=== PATIENT | female | born 1960 | race African-American/Black ===

== ENCOUNTER 2018-03-14 19:16 | Inpatient (IN) | payer OTHER, MEDICAID ==
[~2018-03-14] VITALS: Ht 165.1 cm; Wt 86.6 kg
[2018-03-14 20:01] LABS: BASOPHILS # (AUTO) 0.1 K/uL (0.0-8.0); BASOPHILS % (AUTO) 2.6 % (0.0-2.0); EOSINOPHILS # (AUTO) 0.1 K/uL (0.0-0.7); EOSINOPHILS % (AUTO) 2.5 % (0.0-7.0); HEMATOCRIT 38.3 % (31.2-41.9); HEMOGLOBIN 12.5 g/dL (10.9-14.3); LYMPHOCYTES # (AUTO) 1.8 K/uL (20.0-40.0); LYMPHOCYTES % (AUTO) 33.3 % (20.5-51.5); MEAN CORPUSCULAR HEMOGLOBIN 27.1 uug (24.7-32.8); MEAN CORPUSCULAR HGB CONC 33 g/dL (32.3-35.6); MONOCYTES # (AUTO) 0.4 K/uL (2.0-10.0); MONOCYTES % (AUTO) 7.9 % (0.0-11.0); NEUTROPHILS # (AUTO) 2.9 K/uL (1.8-8.9); NEUTROPHILS % (AUTO) 53.7 % (38.5-71.5); PLATELET COUNT (AUTO) 127 K/uL (179-408); RED BLOOD CELL COUNT(AUTO) 4.61 MIL/uL (3.63-4.92); WHITE BLOOD COUNT (AUTO) 5.4 K/uL (3.8-11.8)
[2018-03-14 20:11] LABS: CARBON DIOXIDE 30 mmol/L (21-32); CHLORIDE 106 mmol/L (98-107); CREATININE 1.1 mg/dL (0.6-1.3); GLUCOSE 114 mg/dL (74-106); POTASSIUM 4.3 mmol/L (3.5-5.1); UREA NITROGEN, BLOOD 30 mg/dL (7-18)
[2018-03-14 20:16] LABS: ACETAMINOPHEN < 2.0 ug/mL (10-30); ALANINE AMINOTRANSFERASE 23 U/L (14-59); ALKALINE PHOSPHATASE 106 U/L (50-136); ASPARTATE AMINOTRANSFERASE 14 U/L (15-37); BILIRUBIN,DIRECT 0.1 mg/dL (0.0-0.2); BILIRUBIN,TOTAL 0.3 mg/dL (0.2-1.0)
[2018-03-14 20:20] LABS: ETHANOL < 3 MG/DL (0-0)
[2018-03-14 20:20] LABS: *BILIRUBIN,URIN NEGATIVE (NEGATIVE); *BLOOD, URINE NEGATIVE (NEGATIVE); *COLOR,URINE YELLOW (YELLOW); *KETONES,URINE TRACE (NEGATIVE); *PROTEIN,URINE NEGATIVE (NEGATIVE); *UROBILINOGEN,URINE 0.2 E.U./dl (NORMAL); LEUKOCYTE ESTERASE ,URINE TRACE (NEGATIVE); NITRITE, URINE NEGATIVE (NEGATIVE); UGLUCOSE NEGATIVE (NEGATIVE)
[2018-03-14 20:30] LABS: *CLARITY,URINE SLIGHTLY HAZY (CLEAR)
[2018-03-14 20:31] LABS: BACTERIA,URINE MODERATE /HPF (NONE SEEN); RBC,URINE 0-3 /HPF (0-3); SQUAMOUS EPITHELIAL CELL,UR MODERATE /HPF (NONE SEEN)
[2018-03-14 20:32] LABS: MUCUS,URINE MODERATE /LPF (0-FEW)
[2018-03-14] MEDS ORDERED: LEVOFLOXACIN 500 MG TABLET PO ONE (20:45)
[2018-03-14] MEDS ORDERED: LEVOFLOXACIN 500 MG TABLET ONE (20:47)
[2018-03-14] MEDS ORDERED: QUET200T PO (21:10)
[2018-03-14] MEDS ORDERED: CARV6.252 PO (21:10)
[2018-03-14] MEDS ORDERED: ATEN100T PO (21:10)
[2018-03-14] MEDS ORDERED: LISI-603 PO (21:10)
[2018-03-14] MEDS ORDERED: IBUP-1957 PO (21:10)
[2018-03-14] MEDS ORDERED: MAGNESIUM HYDROXIDE 30 ML LIQUID UDC PO PRN (21:30)
[2018-03-14 21:36] LABS: *AMPHETAMINE, URINE NEGATIVE (NEGATIVE); *BARBITURATE, URINE NEGATIVE (NEGATIVE); *CANNABINOID, URINE NEGATIVE (NEGATIVE); *COCCAINE, URINE POSITIVE (NEGATIVE); *OPIATE, URINE NEGATIVE (NEGATIVE); *PHENCYCLIDINE SCREEN,URINE NEGATIVE (NEGATIVE)
[2018-03-14] MEDS: LORAZEPAM 1 MG TABLET PO PRN (22:45)
[2018-03-15] MEDS: TEMAZEPAM 7.5 MG CAPSULE PO PRN (01:04)
[2018-03-15 02:01] VITALS: BP 150/76
[2018-03-15 07:30] VITALS: BP 135/97
[2018-03-15] MEDS: LORAZEPAM 1 MG TABLET PO PRN ×3 (08:31→23:04)
[2018-03-15] MEDS: NICOTINE 7 MG/24HR PATCH TD SCH (11:30)
[2018-03-15] MEDS: BENZTROPINE MESYLATE 0.5 MG TABLET PO SCH ×2 (14:06→17:41)
[2018-03-15] MEDS: risperiDONE-M 0.5 MG TAB.RAPDIS PO SCH ×2 (14:06→17:41)
[2018-03-15] MEDS: ACETAMINOPHEN 325 MG TABLET PO PRN (15:33)
[2018-03-15 17:13] VITALS: BP 160/89
[2018-03-15] MEDS ORDERED: IBUPROFEN 800 MG TABLET PO PRN (19:45)
[2018-03-15 20:00] VITALS: BP 150/85
[2018-03-15] MEDS: DIVALPROEX SPRINKLE 125 MG CAP.SPRINK PO SCH (20:41)
[2018-03-15] MEDS: CEPHALEXIN MONOHYDRATE 250 MG CAPSULE PO SCH ×2 (21:07→23:03)
[2018-03-16] MEDS: CEPHALEXIN MONOHYDRATE 250 MG CAPSULE PO SCH ×3 (06:27→21:23)
[2018-03-16] MEDS: LORAZEPAM 1 MG TABLET PO PRN ×3 (07:41→16:17)
[2018-03-16] MEDS: ACETAMINOPHEN 325 MG TABLET PO PRN ×2 (07:41→16:17)
[2018-03-16 08:41] VITALS: BP 195/84
[2018-03-16] MEDS: BENZTROPINE MESYLATE 0.5 MG TABLET PO SCH ×3 (08:55→16:17)
[2018-03-16] MEDS: DIVALPROEX SPRINKLE 125 MG CAP.SPRINK PO SCH ×2 (08:55→20:03)
[2018-03-16] MEDS: NICOTINE 7 MG/24HR PATCH TD SCH (08:55)
[2018-03-16] MEDS: risperiDONE-M 0.5 MG TAB.RAPDIS PO SCH ×3 (08:55→16:17)
[2018-03-16] MEDS: CARVEDILOL 6.25 MG TABLET PO SCH ×2 (08:56→16:22)
[2018-03-16] MEDS: LISINOPRIL 20 MG TABLET PO SCH (08:56)
[2018-03-16] MEDS: IBUPROFEN 800 MG TABLET PO PRN (12:31)
[2018-03-16 16:30] VITALS: BP 141/77
[2018-03-16 19:54] VITALS: BP 124/51
[2018-03-16] MEDS: TEMAZEPAM 7.5 MG CAPSULE PO PRN (21:23)
[2018-03-17] MEDS: CEPHALEXIN MONOHYDRATE 250 MG CAPSULE PO SCH ×3 (06:06→22:32)
[2018-03-17] MEDS: LORAZEPAM 1 MG TABLET PO PRN ×3 (06:52→15:53)
[2018-03-17 08:03] VITALS: BP 176/99
[2018-03-17] MEDS: NICOTINE 7 MG/24HR PATCH TD SCH (08:06)
[2018-03-17] MEDS: CARVEDILOL 6.25 MG TABLET PO SCH ×2 (08:07→16:10)
[2018-03-17] MEDS: risperiDONE-M 0.5 MG TAB.RAPDIS PO SCH ×3 (08:07→16:08)
[2018-03-17] MEDS: DIVALPROEX SPRINKLE 125 MG CAP.SPRINK PO SCH ×2 (08:07→19:03)
[2018-03-17] MEDS: ACETAMINOPHEN 325 MG TABLET PO PRN (08:07)
[2018-03-17] MEDS: BENZTROPINE MESYLATE 0.5 MG TABLET PO SCH ×3 (08:07→16:08)
[2018-03-17] MEDS: LISINOPRIL 20 MG TABLET PO SCH (08:08)
[2018-03-17 09:45] VITALS: BP 176/99
[2018-03-17] MEDS: IBUPROFEN 800 MG TABLET PO PRN ×2 (09:54→15:53)
[2018-03-17 15:03] VITALS: BP 161/65
[2018-03-17 20:27] VITALS: BP 114/78
[2018-03-17] MEDS: TEMAZEPAM 7.5 MG CAPSULE PO PRN (22:33)
[2018-03-18] MEDS: CEPHALEXIN MONOHYDRATE 250 MG CAPSULE PO SCH ×3 (05:18→21:28)
[2018-03-18 07:50] VITALS: BP 137/76
[2018-03-18] MEDS: LORAZEPAM 1 MG TABLET PO PRN ×3 (08:13→17:07)
[2018-03-18] MEDS: BENZTROPINE MESYLATE 0.5 MG TABLET PO SCH ×3 (08:13→16:20)
[2018-03-18] MEDS: LISINOPRIL 20 MG TABLET PO SCH (08:14)
[2018-03-18] MEDS: DIVALPROEX SPRINKLE 125 MG CAP.SPRINK PO SCH ×2 (08:14→20:32)
[2018-03-18] MEDS: risperiDONE-M 0.5 MG TAB.RAPDIS PO SCH ×4 (08:17→16:52)
[2018-03-18] MEDS: NICOTINE 7 MG/24HR PATCH TD SCH (08:17)
[2018-03-18] MEDS: CARVEDILOL 6.25 MG TABLET PO SCH ×2 (08:18→16:20)
[2018-03-18 16:46] VITALS: BP 142/86
[2018-03-18] MEDS: IBUPROFEN 800 MG TABLET PO PRN (16:58)
[2018-03-18 20:00] VITALS: BP 153/83
[2018-03-18] MEDS: TEMAZEPAM 7.5 MG CAPSULE PO PRN (20:33)
[2018-03-19] MEDS: CEPHALEXIN MONOHYDRATE 250 MG CAPSULE PO SCH ×3 (06:37→21:35)
[2018-03-19 07:30] VITALS: BP 134/87
[2018-03-19] MEDS: BENZTROPINE MESYLATE 0.5 MG TABLET PO SCH ×3 (08:34→16:25)
[2018-03-19] MEDS: DIVALPROEX SPRINKLE 125 MG CAP.SPRINK PO SCH ×2 (08:36→20:20)
[2018-03-19] MEDS: CARVEDILOL 6.25 MG TABLET PO SCH ×2 (08:36→16:27)
[2018-03-19] MEDS: LISINOPRIL 20 MG TABLET PO SCH (08:37)
[2018-03-19] MEDS: NICOTINE 7 MG/24HR PATCH TD SCH (08:37)
[2018-03-19] MEDS: risperiDONE-M 0.5 MG TAB.RAPDIS PO SCH ×3 (08:37→16:28)
[2018-03-19] MEDS: LORAZEPAM 1 MG TABLET PO PRN (13:43)
[2018-03-19 15:57] VITALS: BP 128/67
[2018-03-19] MEDS: ACETAMINOPHEN 325 MG TABLET PO PRN (16:25)
[2018-03-19] MEDS: DIVALPROEX 250 MG TABLET.DR PO SCH (16:26)
[2018-03-19 19:48] VITALS: BP 132/71
[2018-03-19] MEDS: TEMAZEPAM 7.5 MG CAPSULE PO PRN (21:31)
[2018-03-20] MEDS: CEPHALEXIN MONOHYDRATE 250 MG CAPSULE PO SCH ×2 (05:58→13:12)
[2018-03-20 07:30] VITALS: BP 133/80
[2018-03-20] MEDS: DIVALPROEX SPRINKLE 125 MG CAP.SPRINK PO SCH ×2 (08:52→20:00)
[2018-03-20] MEDS: BENZTROPINE MESYLATE 0.5 MG TABLET PO SCH ×3 (08:52→17:12)
[2018-03-20] MEDS: CARVEDILOL 6.25 MG TABLET PO SCH ×2 (08:52→17:14)
[2018-03-20] MEDS: NICOTINE 7 MG/24HR PATCH TD SCH (08:53)
[2018-03-20] MEDS: LISINOPRIL 20 MG TABLET PO SCH (08:53)
[2018-03-20] MEDS: risperiDONE-M 0.5 MG TAB.RAPDIS PO SCH ×3 (08:53→17:14)
[2018-03-20] MEDS: LORAZEPAM 1 MG TABLET PO PRN ×4 (08:54→23:04)
[2018-03-20] MEDS: ACETAMINOPHEN 325 MG TABLET PO PRN (15:24)
[2018-03-20 16:32] VITALS: BP 147/82
[2018-03-20] MEDS: DIVALPROEX 250 MG TABLET.DR PO SCH (17:14)
[2018-03-20] MEDS: TEMAZEPAM 7.5 MG CAPSULE PO PRN (20:01)
[2018-03-20 20:11] VITALS: BP 116/46
[2018-03-21 07:30] VITALS: BP 121/94
[2018-03-21] MEDS: BENZTROPINE MESYLATE 0.5 MG TABLET PO SCH ×3 (09:15→16:11)
[2018-03-21] MEDS: DIVALPROEX SPRINKLE 125 MG CAP.SPRINK PO SCH ×2 (09:17→20:17)
[2018-03-21] MEDS: CARVEDILOL 6.25 MG TABLET PO SCH ×2 (09:18→16:14)
[2018-03-21] MEDS: LISINOPRIL 20 MG TABLET PO SCH (09:19)
[2018-03-21] MEDS: NICOTINE 7 MG/24HR PATCH TD SCH (09:20)
[2018-03-21] MEDS: risperiDONE-M 0.5 MG TAB.RAPDIS PO SCH ×3 (10:40→16:12)
[2018-03-21 16:00] VITALS: BP 118/84
[2018-03-21] MEDS: DIVALPROEX 250 MG TABLET.DR PO SCH (16:11)
[2018-03-21 21:34] VITALS: BP 125/88
[2018-03-21] MEDS: TEMAZEPAM 7.5 MG CAPSULE PO PRN (23:49)
[2018-03-22] MEDS: MAG HYDROX/AL HYDROX/SIMETH 30 ML LIQUID UDC PO PRN (02:11)
[2018-03-22] MEDS: ACETAMINOPHEN 325 MG TABLET PO PRN (02:11)
[2018-03-22] MEDS: LORAZEPAM 1 MG TABLET PO PRN (02:12)
[2018-03-22 07:30] VITALS: BP 120/79
[2018-03-22] MEDS: risperiDONE-M 0.5 MG TAB.RAPDIS PO SCH ×3 (08:41→17:24)
[2018-03-22] MEDS: DIVALPROEX SPRINKLE 125 MG CAP.SPRINK PO SCH ×2 (08:42→20:15)
[2018-03-22] MEDS: BENZTROPINE MESYLATE 0.5 MG TABLET PO SCH ×3 (08:42→17:25)
[2018-03-22] MEDS: LISINOPRIL 20 MG TABLET PO SCH (08:42)
[2018-03-22] MEDS: NICOTINE 7 MG/24HR PATCH TD SCH (08:43)
[2018-03-22] MEDS: CARVEDILOL 6.25 MG TABLET PO SCH ×2 (08:43→17:25)
[2018-03-22 16:00] VITALS: BP 125/80
[2018-03-22] MEDS: DIVALPROEX 250 MG TABLET.DR PO SCH (17:29)
[2018-03-22] MEDS ORDERED: GUAIFENESIN/DEXTROMETHORPHAN 5 ML UDC PO PRN ×2 (18:15→18:30)
[2018-03-22 21:34] VITALS: BP 149/82
[2018-03-23 07:30] VITALS: BP 124/61
[2018-03-23] MEDS: BENZTROPINE MESYLATE 0.5 MG TABLET PO SCH ×3 (08:14→16:52)
[2018-03-23] MEDS: DIVALPROEX SPRINKLE 125 MG CAP.SPRINK PO SCH ×2 (08:14→20:13)
[2018-03-23] MEDS: risperiDONE-M 0.5 MG TAB.RAPDIS PO SCH ×3 (08:14→16:52)
[2018-03-23] MEDS: LISINOPRIL 20 MG TABLET PO SCH (08:14)
[2018-03-23] MEDS: CARVEDILOL 6.25 MG TABLET PO SCH ×2 (08:15→16:53)
[2018-03-23] MEDS: NICOTINE 7 MG/24HR PATCH TD SCH (08:16)
[2018-03-23 16:00] VITALS: BP 101/68
[2018-03-23] MEDS: DIVALPROEX 250 MG TABLET.DR PO SCH (16:52)
[2018-03-23 20:00] VITALS: BP 126/60
[2018-03-23] MEDS: TEMAZEPAM 7.5 MG CAPSULE PO PRN (22:13)
[2018-03-24] MEDS: MAG HYDROX/AL HYDROX/SIMETH 30 ML LIQUID UDC PO PRN ×3 (00:10→20:32)
[2018-03-24 07:30] VITALS: BP 126/60
[2018-03-24] MEDS: NICOTINE 7 MG/24HR PATCH TD SCH (08:31)
[2018-03-24] MEDS: CARVEDILOL 6.25 MG TABLET PO SCH ×2 (08:32→17:41)
[2018-03-24] MEDS: DIVALPROEX SPRINKLE 125 MG CAP.SPRINK PO SCH ×2 (08:32→20:32)
[2018-03-24] MEDS: BENZTROPINE MESYLATE 0.5 MG TABLET PO SCH ×3 (08:32→17:40)
[2018-03-24] MEDS: LISINOPRIL 20 MG TABLET PO SCH (08:33)
[2018-03-24] MEDS: risperiDONE-M 0.5 MG TAB.RAPDIS PO SCH ×3 (08:35→17:39)
[2018-03-24 16:00] VITALS: BP 128/69
[2018-03-24] MEDS: DIVALPROEX 250 MG TABLET.DR PO SCH (17:39)
[2018-03-24] MEDS: LORAZEPAM 1 MG TABLET PO PRN (20:32)
[2018-03-24 20:40] VITALS: BP 142/79
[2018-03-24] MEDS: TEMAZEPAM 7.5 MG CAPSULE PO PRN (22:05)
[2018-03-25 07:30] VITALS: BP 127/60
[2018-03-25] MEDS: risperiDONE-M 0.5 MG TAB.RAPDIS PO SCH ×3 (08:52→16:52)
[2018-03-25] MEDS: NICOTINE 7 MG/24HR PATCH TD SCH (08:52)
[2018-03-25] MEDS: DIVALPROEX SPRINKLE 125 MG CAP.SPRINK PO SCH ×2 (08:52→20:20)
[2018-03-25] MEDS: IBUPROFEN 800 MG TABLET PO PRN (08:52)
[2018-03-25] MEDS: BENZTROPINE MESYLATE 0.5 MG TABLET PO SCH ×3 (08:52→16:52)
[2018-03-25] MEDS: LISINOPRIL 20 MG TABLET PO SCH (08:53)
[2018-03-25] MEDS: CARVEDILOL 6.25 MG TABLET PO SCH ×2 (08:53→16:53)
[2018-03-25] MEDS: ACETAMINOPHEN 325 MG TABLET PO PRN (12:24)
[2018-03-25] MEDS: MAG HYDROX/AL HYDROX/SIMETH 30 ML LIQUID UDC PO PRN (15:39)
[2018-03-25 15:50] VITALS: BP 118/79
[2018-03-25] MEDS: DIVALPROEX 250 MG TABLET.DR PO SCH (16:52)
[2018-03-25 20:26] VITALS: BP 130/76
[2018-03-25] MEDS: TEMAZEPAM 7.5 MG CAPSULE PO PRN (21:55)
[2018-03-26] MEDS: MAG HYDROX/AL HYDROX/SIMETH 30 ML LIQUID UDC PO PRN (00:05)
[2018-03-26 07:30] VITALS: BP 119/62
[2018-03-26] MEDS: IBUPROFEN 800 MG TABLET PO PRN (08:47)
[2018-03-26] MEDS: BENZTROPINE MESYLATE 0.5 MG TABLET PO SCH ×2 (08:47→12:02)
[2018-03-26] MEDS: NICOTINE 7 MG/24HR PATCH TD SCH (08:47)
[2018-03-26] MEDS: CARVEDILOL 6.25 MG TABLET PO SCH (08:47)
[2018-03-26] MEDS: DIVALPROEX SPRINKLE 125 MG CAP.SPRINK PO SCH (08:47)
[2018-03-26] MEDS: risperiDONE-M 0.5 MG TAB.RAPDIS PO SCH ×2 (08:47→12:02)
[2018-03-26 08:48] VITALS: BP 119/62
[2018-03-26] MEDS: LISINOPRIL 20 MG TABLET PO SCH (08:48)
== END 2018-03-26 13:00 | disposition home or self-care (01) | DRG 885 ==
LOC: EDSEX 19:20 → ER 19:20 → GPS 21:10
PROVIDERS: ADMIT Psychiatry & Neurology Psychosomatic Medicine; ATTEND Nurse Practitioner Acute Care
DX: F25.0 Schizoaffective disorder, bipolar type (principal); E44.1 Mild protein-calorie malnutrition; Z68.31 Body mass index [BMI] 31.0-31.9, adult; E78.00 Pure hypercholesterolemia, unspecified; I11.9 Hypertensive heart disease without heart failure; Z91.19 Patient's noncompliance with other medical treatment and regimen; F17.210 Nicotine dependence, cigarettes, uncomplicated; E11.9 Type 2 diabetes mellitus without complications; Z59.0 Homelessness; F14.90 Cocaine use, unspecified, uncomplicated
CPT/HCPCS: 36415; 70030-TC; 71045; 80164; 80307; 85025; 93005; A9150; G0480; G0480-TC; J3490